=== PATIENT | male | born 1965 | race Two or more races ===

== ENCOUNTER 2024-09-09 12:20 | Day surgery (SDC) | payer BC, SELFPAY ==
[2024-09-08 14:54] VITALS: BMI 27.8
[2024-09-09] VITALS (19 sets, daily range): BP systolic 97–142; BP diastolic 50–86; PULSE 57–98; RESP 11–24; TEMP 36.3–36.7; O2SAT 95–99; BMI 27.2
[2024-09-09] MEDS: RINGERS LACTATED 1000 ML 1,000 ML 125 ML IV (13:48)
[2024-09-09] MEDS: fentaNYL CIT INJ 50 mCg/ML AMP 2ML (ASD USE ONLY) IV (13:53)
[2024-09-09] MEDS: MIDAZOLAM INJ 1 MG/ML VIAL 2 ML (ASD USE ONLY) 2 MG IV (14:03)
[2024-09-09] MEDS: SIMETHICONE 40 MG/0.6 ML ORAL SYRINGE PO (14:10)
== END 2024-09-09 15:45 | disposition home or self-care (01) ==
PROVIDERS: PCP Nurse Practitioner Family; Referring Provider Surgery; Visit Provider Surgery
PROC: 0DBE8ZX Excision of Large Intestine, Via Natural or Artificial Opening Endoscopic, Diagnostic (ICD-10-PCS; CPT 45380; principal; 2024-09-09 13:45)
DX: Z09 Encounter for follow-up examination after completed treatment for conditions other than malignant neoplasm (principal); D12.5 Benign neoplasm of sigmoid colon; D12.3 Benign neoplasm of transverse colon; K63.5 Polyp of colon; Z86.0101 Personal history of adenomatous and serrated colon polyps; E11.9 Type 2 diabetes mellitus without complications; Z79.84 Long term (current) use of oral hypoglycemic drugs
CPT/HCPCS: 45385; 45380; J2250; J3010; J7120; A9270